=== PATIENT | female | born 1955 | race African-American/Black ===

== ENCOUNTER 2016-06-30 15:36 | Observation (INO) | payer BC ==
[~2016-06-30] VITALS: Ht 170.2 cm; Wt 104.3 kg
[2016-06-30] MEDS ORDERED: AMLO10TA2 PO (16:21)
[2016-06-30] MEDS ORDERED: METO-269 PO (16:22)
[2016-06-30] MEDS ORDERED: VALS1TAB8 PO (16:23)
[2016-06-30] MEDS ORDERED: CHOL500016 PO (16:24)
[2016-06-30] MEDS ORDERED: UBID1CAP23 PO (16:24)
[2016-06-30] MEDS ORDERED: POTA20TA4 PO (16:25)
[2016-06-30] MEDS ORDERED: MULT-650 PO (16:25)
[2016-06-30] MEDS ORDERED: IV NORMAL SALINE 1000ML BAG 1,000 ML IV SCH (16:35)
--- NOTE | 2016-06-30 16:35 | PHYS DOC ---
Past Medical History Past Medical History: Hypertension Past Surgical History: Cholecystectomy, Hysterectomy Additional Past Surgical Histo: hernia Alcohol Use: None Drug Use: None Adult General Chief Complaint Chief Complaint: ABDOMINAL PAIN HPI HPI Patient is a 61 year old female who presents with abdominal pain. Patient reports she has had constant sharp right lower quadrant pain since Wednesday. This is accompanied by nausea for the past 2 weeks. She is also having chills. She was seen by Dr. Marley today, and was sent to the emergency department due to concern for appendicitis. She has not taken anything for symptoms. Review of Systems Review of Systems Constitutional: Chills Eyes: Denies change in visual acuity or eye pain HENT: Denies nasal congestion or sore throat Respiratory: Denies cough or shortness of breath Cardiovascular: Denies chest pain GI: RLQ abdominal pain, nausea. Denies vomiting, bloody stools or diarrhea : Denies dysuria or hematuria Musculoskeletal: Denies back pain or joint pain Integument: Denies rash or skin lesions Neurologic: Denies headache, focal weakness or sensory changes Current Medications Current Medications Current Medications Medications (Trade) Dose Ordered Sig/Prakash Start Time Stop Time Status Last Admin Dose Admin Aspirin (Children'S Aspirin) 324 mg 1X ONCE 06/30/16 20:45 06/30/16 20:46 Famotidine (Pepcid) 20 mg 1X ONCE 06/30/16 18:00 06/30/16 18:09 DC Info (Do NOT chart on this entry -- for MONITORING) 1 each PRN DAILY PRN 06/30/16 17:15 07/02/16 17:14 Iohexol (Omnipaque 300 Mg/ml) 75 ml 1X ONCE 06/30/16 17:15 06/30/16 17:16 DC 06/30/16 17:17 75 ML Lorazepam (Ativan) 1 mg 1X ONCE 06/30/16 18:00 06/30/16 18:09 DC Morphine Sulfate 4 mg 1X ONCE 06/30/16 16:45 06/30/16 16:46 DC 06/30/16 17:01 4 MG Ondansetron HCl (Zofran) 4 mg 1X ONCE 06/30/16 16:45 06/30/16 16:46 DC 06/30/16 17:01 4 MG Potassium Chloride (Klor-Con) 20 meq 1X ONCE 06/30/16 18:00 06/30/16 18:09 DC Sodium Chloride (Iv Sodium Chloride 0.9% 1000ml Bag) 1,000 ml @ 1,000 mls/hr Q1H 06/30/16 16:35 06/30/16 17:34 DC 06/30/16 17:02 1,000 MLS/HR Allergies Allergies Allergies Coded Allergies Type Severity Reaction Last Updated Verified Penicillins Allergy Unknown 06/30/16 Yes codeine Allergy Unknown 06/30/16 Yes hydrocodone Allergy Unknown 06/30/16 Yes tramadol Allergy Unknown 06/30/16 Yes shellfish derived Adverse Reaction Unknown 06/30/16 Yes Physical Exam Physical Exam Constitutional: Well developed, well nourished, no acute distress, non-toxic appearance HENT: Normocephalic, atraumatic, bilateral external ears normal Eyes: EOMI, conjunctiva normal, no discharge Neck: Normal range of motion, no stridor Cardiovascular: Heart rate normal, regular rhythm, no murmur Lungs & Thorax: Bilateral breath sounds clear to auscultation Abdomen: Bowel sounds normal, soft, non-distended, R mid abdomen TTP without guarding Skin: Warm, dry, no erythema, no rash Extremities: No obvious deformity, no edema Neurologic: Alert and oriented X 3, no gross deficits noted Psychologic: Affect normal, judgement normal, mood normal Current Patient Data Vital Signs Vital Signs Date Time Temp Pulse Resp B/P Pulse Ox O2 Delivery O2 Flow Rate FiO2 06/30/16 18:40 86 20 190/86 98 06/30/16 16:00 98.4 Room Air 98.4 Lab Values Laboratory Tests Test 06/30/16 15:45 06/30/16 16:08 06/30/16 19:43 Urine Collection Type Unknown Urine Color Yellow Urine Clarity Clear Urine pH 6.0 Urine Specific [place] >=1.030 Urine Protein Negativemg/dL (NEG-TRACE) Urine Glucose (UA) 500mg/dL (NEG) Urine Ketones (Stick) Negativemg/dL (NEG) Urine Blood Negative (NEG) Urine Nitrite Negative (NEG) Urine Bilirubin Negative (NEG) Urine Urobilinogen Dipstick 0.2mg/dL (0.2 mg/dL) Urine Leukocyte Esterase Trace (NEG) Urine RBC Rare/HPF (0-2) Urine WBC 1-4/HPF (0-4) Urine Squamous Epithelial Cells Many/LPF Urine Bacteria Few/HPF (0-FEW) Urine Mucus Marked/LPF White Blood Count 7.6x10^3/uL (4.0-11.0) Red Blood Count 5.56x10^6/uL (3.50-5.40) H Hemoglobin 12.2g/dL (12.0-15.5) Hematocrit 39.5% (36.0-47.0) Mean Corpuscular Volume 71fL (79-100) L Mean Corpuscular Hemoglobin 22pg (25-35) L Mean Corpuscular Hemoglobin Concent 31g/dL (31-37) Red Cell Distribution Width 15.0% (11.5-14.5) H Platelet Count 168x10^3/uL (140-400) Neutrophils (%) (Auto) 52% (31-73) Lymphocytes (%) (Auto) 39% (24-48) Monocytes (%) (Auto) 7% (0-9) Eosinophils (%) (Auto) 1% (0-3) Basophils (%) (Auto) 1% (0-3) Neutrophils # (Auto) 3.9x10^3uL (1.8-7.7) Lymphocytes # (Auto) 3.0x10^3/uL (1.0-4.8) Monocytes # (Auto) 0.5x10^3/uL (0.0-1.1) Eosinophils # (Auto) 0.1x10^3/uL (0.0-0.7) Basophils # (Auto) 0.1x10^3/uL (0.0-0.2) Platelet Estimate Adequate (ADEQUATE) Polychromasia Slight Hypochromasia Slight Anisocytosis Slight Microcytosis Mod Target Cells Occ Sodium Level 142mmol/L (136-145) Potassium Level 3.3mmol/L (3.5-5.1) L Chloride Level 102mmol/L (98-107) Carbon Dioxide Level 30mmol/L (21-32) Anion Gap 10 (6-14) Blood Urea Nitrogen 17mg/dL (7-20) Creatinine 0.8mg/dL (0.6-1.0) Estimated GFR (Cockcroft-Gault) 87.9 BUN/Creatinine Ratio 21 (6-20) H Glucose Level 249mg/dL (70-99) H Calcium Level 10.1mg/dL (8.5-10.1) Total Bilirubin 0.8mg/dL (0.2-1.0) Aspartate Amino Transferase (AST) 15U/L (15-37) Alanine Aminotransferase (ALT) 25U/L (14-59) Alkaline Phosphatase 93U/L (46-116) Troponin I Quantitative 0.018ng/mL (0.000-0.055) 0.028ng/mL (0.000-0.055) Total Protein 7.8g/dL (6.4-8.2) Albumin 3.8g/dL (3.4-5.0) Albumin/Globulin Ratio 1.0 (1.0-1.7) Lipase 97U/L (73-393) Laboratory Tests 06/30/16 16:08 Laboratory Tests 06/30/16 16:08 EKG EKG EKG (my read): sinus rhythm, rate 83, LAD, intervals wnl, no acute ST/T changes Radiology/Procedures Radiology/Procedures CT A/P: Impression: Unremarkable CT of the abdomen and pelvis. No acute abnormality is detected. CXR: pending Course & Med Decision Making Course & Med Decision Making Pertinent Labs and Imaging studies reviewed. (See chart for details) Patient is 61-year-old female who presents with right lower quadrant pain. Concern for possibility of appendicitis. Will check labs, UA, CT abdomen/pelvis to evaluate. IV fluids, pain medication, nausea medication ordered for relief of symptoms. Labs largely unremarkable. CT results as above. Right after patient got CT scan, she started complaining of indigestion and became agitated. Perhaps due to IV contrast for the morphine. I ordered a dose of Ativan for the patient, which she refused. She says she will not take any more medication here. Although patient remains adamant that this just indigestion and not related to her heart, I have ordered an EKG and troponin. Initial troponin within normal limits. After discussion with patient, she agreed to stay for second troponin which increased to 0.028 (up from 0.018). I am concerned for possibility of ACS with this troponin increase after just a couple hours of symptoms. Dose of aspirin ordered. I discussed this change in troponin with patient (and why it was concerning); she does not wish to stay in the hospital. However, I am not comfortable discharging patient with her symptoms and this increase in troponin. Patient is A&Ox3, and has capacity to make her own medical decisions. I discussed with her and family that if she wanted to leave she would have to sign out AMA, which she does not want to do because of the insurance ramifications. She has therefore agreed to stay the night for serial troponins. Case discussed with Dr. Olson, will admit under observation status for repeat biomarkers. Dragon Disclaimer Dragon Disclaimer This electronic medical record was generated, in whole or in part, using a voice recognition dictation system. Departure Departure Impression: Primary Impression: Abdominal pain Additional Impression: Chest discomfort Disposition: ADMITTED INPATIENT Admitting Physician: Anson Olson Condition: GUARDED Referrals: DANA MARLEY MD (PCP) Problem Qualifiers CHUCK GUILLAUME MD Jun 30, 2016 16:35
[2016-06-30] MEDS ORDERED: ONDANSETRON PF 4 MG/2 ML VIAL. IV ONE (16:45)
[2016-06-30] MEDS ORDERED: MORPHINE SULFATE 4 MG/ML DISP.SYRIN. IV ONE (16:45)
[2016-06-30 16:48] LABS: BASO # 0.1 x10^3/uL (0.0-0.2); BASO % 1 % (0-3); EOS % 1 % (0-3); HEMATOCRIT 39.5 % (36.0-47.0); HEMOGLOBIN 12.2 g/dL (12.0-15.5); LYMPH % 39 % (24-48); MEAN CORPUSCULAR HEMOGLOBIN 22 pg (25-35); MEAN CORPUSCULAR HGB CONC 31 g/dL (31-37); MEAN CORPUSCULAR VOLUME 71 fL (79-100); MONO % 7 % (0-9); NEUT % 52 % (31-73); PLATELET COUNT 168 x10^3/uL (140-400); RED BLOOD COUNT 5.56 x10^6/uL (3.50-5.40); WHITE BLOOD COUNT 7.6 x10^3/uL (4.0-11.0)
[2016-06-30 16:48] LABS: BILIRUBIN,URINE NEGATIVE (NEG); GLUCOSE,URINE 500 mg/dL (NEG); NITRITE,URINE NEGATIVE (NEG); PROTEIN,URINE NEGATIVE (NEG-TRACE); UROBILINOGEN,URINE 0.2 mg/dL (0.2 mg/dL)
[2016-06-30 17:02] LABS: CALCIUM 10.1 mg/dL (8.5-10.1); CREATININE 0.8 mg/dL (0.6-1.0); GFR 87.9; POTASSIUM 3.3 mmol/L (3.5-5.1)
[2016-06-30 17:02] LABS: BACTERIA,URINE FEW /HPF (0-FEW); RBC,URINE RARE /HPF (0-2); SQUAMOUS EPITHELIAL CELL,UR MANY /LPF
[2016-06-30 17:08] LABS: ALBUMIN 3.8 g/dL (3.4-5.0); TOTAL BILIRUBIN 0.8 mg/dL (0.2-1.0); TOTAL PROTEIN 7.8 g/dL (6.4-8.2)
[2016-06-30] MEDS ORDERED: IOHEXOL 300 MG/ML 75 ML VIAL IV ONE (17:15)
[2016-06-30] MEDS ORDERED: CONTRAST GIVEN MC PRN (17:15)
[2016-06-30 17:55] LABS: ANISOCYTOSIS SLIGHT; HYPOCHROMIA SLIGHT; MICROCYTOSIS MOD; PLT ESTIMATE ADEQUATE (ADEQUATE); POLYCHROMASIA SLIGHT; TARGET CELLS OCC
[2016-06-30] MEDS ORDERED: POTASSIUM CHLORIDE 20 MEQ TABLET.ER. PO ONE (18:00)
[2016-06-30] MEDS ORDERED: FAMOTIDINE 20 MG/2 ML VIAL IVP ONE (18:00)
[2016-06-30] MEDS ORDERED: LORAZEPAM 2 MG/ML VIAL IV ONE (18:00)
--- NOTE | 2016-06-30 18:04 | RAD ---
CT abdomen pelvis with IV contrast Indication: Right lower quadrant pain with nausea. Axial imaging through the abdomen and pelvis was performed after the administration of intravenous contrast. No prior CT studies are available for comparison. The lung bases are clear. The liver is unremarkable. Gallbladder is surgically absent. The pancreas and spleen are unremarkable. No adrenal mass is detected. There is no hydronephrosis. The aorta is normal caliber. The small and large bowel loops are normal caliber. The appendix is visualized and unremarkable. There are postop changes to the anterior abdominal wall. No free fluid or fluid collection is seen. No free air is identified. The bladder is decompressed. Impression: Unremarkable CT of the abdomen and pelvis. No acute abnormality is detected. Electronically signed by: Rakesh Torres MD (Jun 30, 2016 18:03:09)
[2016-06-30] MEDS ORDERED: ASPIRIN 81 MG TAB.CHEW PO ONE (20:45)
[2016-06-30] MEDS ORDERED: NITROGLYCERIN SUBLINGUAL 0.4 MG BOTTLE OF 25. SL PRN (21:00)
[2016-06-30] MEDS ORDERED: ONDANSETRON PF 4 MG/2 ML VIAL. IV PRN (21:00)
[2016-06-30] MEDS ORDERED: FENTANYL PF 100 MCG/2 ML VIAL. IV PRN (21:00)
[2016-06-30] MEDS ORDERED: ACETAMINOPHEN 325 MG TABLET. PO PRN (21:00)
--- NOTE | 2016-06-30 21:37 | ACF ---
Admission Forms Criteria ABDOMINAL PAIN Clinical Indications for Admission to Inpatient Care (Place 'X' for any and all applicable criteria): Admission is indicated for ANY ONE of the following(1)(2)(3)(4)(5): [X]I. Inpatient admission required rather than observation care (Also use Abdominal Pain: Observation Care, as appropriate) because of ANY ONE of the following: [ ]a) Severe pain requiring acute inpatient management [X]b) Identification of etiology/finding that requires inpatient care (eg, aortic dissection, free air) [ ]c) Absent bowel sounds with complete ileus(6) [ ]d) Suspected toxic megacolon [ ]e) Severe electrolyte abnormalities requiring inpatient care [ ]f) High fever or infection requiring inpatient admission as indicated by ANY ONE of following(7)(8): [ ] i) Appropriate outpatient or observational care antimicrobial treatment unavailable, not effective, or not feasible [ ] ii) Documented bacteremia [ ] iii) Temperature > 104.9 degrees F (oral) [ ] iv) T >103.1 F (oral) or < 96.8 F(rectal) that does not respond to all emergency treatment measures [ ]g) Signs of intestinal obstruction [B] [ ]h) Hemodynamic instability [ ]i) IV fluid to replace significant ongoing losses (greater than 3 L/m2 per day) (12)(13) [ ]j) Percutaneous or open drainage (eg, abscess, biliary tract ) procedures [ ]k) Parenteral nutrition regimen that must be implemented on inpatient basis [ ]l) Other condition,treatment or monitoring requiring inpatient admission. [ ]II. Peritoneal signs present [ ]III. Surgery needed that cannot be performed on an ambulatory basis. [ ]IV. Evaluation requires patient to not eat or drink for extended period ( eg, more than 24 hours). [ ]V. Contraindications and/or Inappropriate clinical situations for Observational Care in patients with abdominal pain, when ANY ONE of the following is required: [ ]a) Thorough evaluation is required to prevent catastrophic events due to delays in diagnosing (e.g.Mesenteric ischemia) 1,3 [ ]b) Patient with severe pathology or with chronic symptoms unlikely to improve in the ED stay (3) [ ]. General contraindications and/or Inappropriate clinical situations for Observational Care in patients with abdominal pain, when ANY ONE of the following is required: [ ]a) Prediction of prolongation of LOS based on ANY ONE of the following may be considered as a contraindication for observational care 2, 3, 4, 5, 6, 7, 8, 9, 10, 11 [ ]i) Age > 65 yrs. [ ]ii) Patient arriving by ambulance [ ]iii) Patient with high acuity [ ]iv) Patient requiring vital sign monitoring [ ]v) Patient on IV medication [ ]b) Systolic blood pressures 180mmHg 3,12 [ ]c) Patient with altered mental status including delirium and other alteration of consciousness, (3) [ ]d) Patient whose discharge disposition will be to a alf home or rehabilitation home should not be managed in Emergency Department Observation Unit. CMS rule requires 3 days hospital stay before such placement.3,13 [ ]e) Patient with failure to thrive due to broad array of etiologies 3,16,17 [ ]f) Inability to ambulate 3,14 Extended stay beyond goal length of stay may be needed for(2)(3): [ ]a) Persistent abdominal pain with suspected intra-abdominal process [ ]b) Diagnosed condition requiring continued stay (e.g., pancreatitis, complicated diverticulitis) [ ]c) Surgery (e.g., colectomy) The original [facility] content created by [employer] has been revised. The portions of the content which have been revised are identified through the use of italic text or in bold, and [facility] has neither reviewed nor approved the modified material.All other unmodified content is copyright [employer] [facility]. Please see references footnoted in the original [facility] edition 2016 Admission Criteria Met?: Yes KIMBERLY BARBOZA Jun 30, 2016 21:37
[2016-06-30 23:00] VITALS: BP 183/86
[2016-06-30 23:56] VITALS: BP 183/86
[2016-07-01 03:24] VITALS: BP 157/84
--- NOTE | 2016-07-01 06:11 | EKG ---
[facility] [address] [place] [address] Test Date: 2016-06-30 Test Time: 18:12:12 Pat Name: LOIDA NGUYEN Department: Room: 270 1 Gender: F Word Processor Technician: : [id number] Requested By: GORDON BOONE Order Number: [id number] Reading MD: Measurements Intervals [place] Rate: 83 P: 96 IN: 148 QRS: 3 QRSD: 86 T: 25 QT: 374 QTc: 445 Interpretive Statements SINUS RHYTHM LEFT ATRIAL ABNORMALITY RI6.01 Unconfirmed report No previous ECG available for comparison
[2016-07-01 07:00] VITALS: BP 157/84
--- NOTE | 2016-07-01 07:23 | RAD ---
Indication chest pain. A single view of the chest was obtained. Comparison is made to an examination 10/26/2007. Heart size is slightly enlarged but unchanged. There is no congestive heart failure. A focal process in the chest is not seen. The lungs are clear. A significant change compared to the previous exam is not seen. IMPRESSION: No acute or focal process. No significant change
[2016-07-01] MEDS ORDERED: ONDANSETRON PF 4 MG/2 ML VIAL. IV PRN (09:08)
--- NOTE | 2016-07-01 09:34 | PDOC ---
Provider Note Provider Note 23 hr note done. JOb # [id number] DENNIS SCHILLING MD Jul 01, 2016 09:34
[2016-07-01 10:00] VITALS: BP 157/84
[2016-07-01] MEDS ORDERED: METOPROLOL SUCC 24HR ER 50 MG TAB.ER.24H. PO SCH (10:00)
[2016-07-01] MEDS ORDERED: AMLODIPINE BESYLATE 10 MG TABLET PO SCH (10:00)
[2016-07-01] MEDS ORDERED: UBIDECARENONE 50 MG CAPSULE. PO SCH (10:00)
[2016-07-01] MEDS ORDERED: MULTIVITAMIN with MINERAL TABLET. PO SCH (10:00)
[2016-07-01] MEDS ORDERED: POTASSIUM CHLORIDE 20 MEQ TABLET.ER. PO SCH (10:00)
--- NOTE | 2016-07-01 11:08 | SSS ---
ADMIT DATE: 06/30/2016 CHIEF COMPLAINT: Abdominal pain. HISTORY OF PRESENT ILLNESS: The patient is a pleasant 61-year-old -Indian female with past medical history of only hypertension, on blood pressure medications at home. PCP, Dr. Michel, follows with of Gastroenterology p.r.n., has history of mesh from ventral hernia, history of hysterectomy and cholecystectomy, coming in because of acute to subacute onset of epigastric pain, more so on the right upper quadrant area, started on Wednesday, which was around 3 to 4 days prior to admission. Associated with nausea for about 2 weeks now. No fever, no change in stool. The patient went to the Emergency Room because of the severe pain as advised by her PCP, thought of initial appendicitis, but CAT scan was unremarkable. Urinalysis also was unremarkable. The patient felt sick after the IV contrast, some morphine, and other medications given at the ER, so she really did not want to be admitted, but on first set of cardiac enzymes, it was elevated, which also further increased on the second set, but looking at these numbers, they are actually within normal range. The patient was admitted despite her being hesitant to be admitted for chest pain, rule out, but again troponins have been in the reference range, and EKG is otherwise unremarkable. The patient still has some abdominal pain, but she refuses to have further evaluation and medications here. On my examination, she does have significant pain in the epigastric and right upper quadrant area even in the left areas, but if she is not palpated, she is fine. She refuses to take any medications. She says she just wants to go home and follow up with her Gastroenterology and General Surgery. Her hernia mesh was placed by Dr. Gallardo here. I did offer that idea of staying here with Dr. Gallardo to see her today and make sure there is nothing surgical or emergent that needs to be addressed or considered with this patient, but still she refused. PAST MEDICAL HISTORY: Hypertension. PAST SURGICAL HISTORY: Hysterectomy and cholecystectomy. Mesh hernia repair. ALLERGIES: PENICILLIN, CODEINE, HYDROCODONE, SHELLFISH-DERIVED SULFAMETHOXAZOLE, TRAMADOL, AND TRIMETHOPRIM. SOCIAL HISTORY: No smoking, no alcohol, no street drugs. REVIEW OF SYSTEMS: All 14 systems reviewed. Denies per HPI. PHYSICAL EXAMINATION: GENERAL: Awake and alert x 3, not in acute respiratory distress. HEENT: Unremarkable. LUNGS: Clear to auscultation bilaterally. CARDIOVASCULAR: Normal rate and rhythm. No murmurs, rubs, or gallops. ABDOMEN: Soft, tender on the epigastric right upper quadrant area. No rebound, guarding. Normoactive bowel sounds. EXTREMITIES: Negative edema. Pulses were full and equal. No pallor or cyanosis of nailbeds. NEUROLOGIC: Within normal limits. PSYCHIATRIC: Within normal limits. GENITALIA: Appropriate for age. ASSESSMENT AND PLAN: Epigastric pain, right upper quadrant pain. Differentials include early appendicitis, peptic ulcer disease, or gastritis. Technically would need Gastroenterology and consult maybe an EGD or a trial of GI cocktail, PPI, etc., but the patient just refuses to have all these done here at the [facility]. She will follow up with her primary care physician as outpatient. I did emphasize the urgency of seeing her primary care physician, and she understands. Son is at bedside. 1. Hypertension, controlled. 2. Obesity. 3. Mild PCI. 4. Hypokalemia. ____ at the Emergency Room. Plan of care as discussed above. HOSPITAL COURSE: The patient stayed overnight despite her not wanting to be admitted for chest pain, rule out, but her troponins have been in reference range. EKG was unremarkable. I am more concerned of the epigastric and right upper quadrant pain and if this is PUD, gastritis, etc., but there is no rebound or guarding, so I do not think that there is any perforation. CAT scan of the abdomen and pelvis are unremarkable. I advised, she will follow up with PCP, Gastroenterology, and General Surgery as soon as she gets out of here. Discussed with RNThang. DENNIS SCHILLING MD DR: /nts JOB#: [id number] / [id number]
[2016-07-08] MEDS ORDERED: CHOLECALCIFEROL (VITAMIN D3) 5,000 UNIT CAPSULE PO SCH (09:00)
== END 2016-07-01 11:00 | disposition home or self-care (01) ==
LOC: ER 15:36 → CVICU 20:44
PROVIDERS: ADMIT Internal Medicine; ATTEND Internal Medicine
DX: R10.31 Right lower quadrant pain (principal); R10.13 Epigastric pain; I10 Essential (primary) hypertension; E87.6 Hypokalemia; E66.9 Obesity, unspecified
CPT/HCPCS: 36415; 71010; 74177; 80053; 81001; 83690; 84484; 85007; 85027; 87086; 93005; 96361; 96374; 96375; 99285; G0378; J2270; J2405; J7030; Q9967; G0379

== ENCOUNTER → 2016-08-19 | Outpatient (CLI) | payer BC ==
[~2016-08-19] MED LIST: AMLO10TA2 PO; BARIUM SULFATE 105% 1,900 ML SUSP PO ONE; CHOL500016 PO; METO-269 PO; MULT-650 PO; POTA20TA4 PO; UBID1CAP23 PO; VALS1TAB8 PO
--- NOTE | 2016-08-19 09:23 | RAD ---
Deep Doppler hepatic ultrasound, 08/19/2016: History: Esophageal varices Duplex evaluation of the hepatic vasculature was performed including grayscale, color-flow and spectral Doppler analysis. The portal veins are patent and demonstrate a normal direction of flow. The hepatic veins are also patent. The hepatic artery is unremarkable. Incidental note is made of increased hepatic echogenicity in a heterogeneous pattern suggesting patchy fatty infiltration. IMPRESSION: 1. Unremarkable hepatic vasculature. 2. Heterogeneously increased hepatic echogenicity suggesting patchy fatty infiltration. CT scanning may be useful for further evaluation, if clinically indicated.
--- NOTE | 2016-08-19 11:39 | RAD ---
Barium enema, 08/19/2016: History: Incomplete colonoscopy The preliminary abdominal image demonstrates a nonspecific gas pattern. Coil like radiopacities related to a mesh from a prior hernia repair are projected over the abdomen and pelvis. Barium was introduced into the colon in a retrograde manner. 2.6 minutes of fluoroscopy time was utilized. 11 fluoroscopic spot images were recorded. No constricting colonic lesion is seen. There are filling defects in the barium colon, most prominent in the ascending colon and cecum, compatible with fecal debris. No colonic mass is identified. There was reflux of barium into the terminal ileum which is unremarkable. IMPRESSION: Negative barium enema.
== END | disposition home or self-care (01) ==
LOC: US 12:05
PROVIDERS: ATTEND Internal Medicine Gastroenterology
DX: I85.00 Esophageal varices without bleeding (principal); K76.89 Other specified diseases of liver; K21.9 Gastro-esophageal reflux disease without esophagitis; D36.9 Benign neoplasm, unspecified site
CPT/HCPCS: 74270; 93975

== ENCOUNTER 2016-09-18 07:02 | Outpatient (CLI) | payer BC ==
[2016-09-18] VITALS (8 sets, daily range): BP systolic 150–176; BP diastolic 79–95
[~2016-09-18] VITALS: Ht 170.2 cm; Wt 91.6 kg
[~2016-09-18 07:02] MED LIST changes: -BARIUM SULFATE 105% 1,900 ML SUSP PO ONE
[2016-09-18 07:33] LABS: BASO # 0.1 x10^3/uL (0.0-0.2); BASO % 1 % (0-3); EOS % 4 % (0-3); HEMATOCRIT 37.7 % (36.0-47.0); HEMOGLOBIN 11.7 g/dL (12.0-15.5); LYMPH # 2.9 x10^3/uL (1.0-4.8); LYMPH % 34 % (24-48); MEAN CORPUSCULAR HEMOGLOBIN 22 pg (25-35); MEAN CORPUSCULAR HGB CONC 31 g/dL (31-37); MEAN CORPUSCULAR VOLUME 71 fL (79-100); MONO % 9 % (0-9); NEUT % 52 % (31-73); PLATELET COUNT 193 x10^3/uL (140-400); RED CELL DISTRIBUTION WIDTH 15.7 % (11.5-14.5); WHITE BLOOD COUNT 8.4 x10^3/uL (4.0-11.0)
[2016-09-18 07:39] LABS: PROTHROMBIN TIME PATIENT 12.1 SEC (11.7-14.0)
[2016-09-18 07:42] LABS: CALCIUM 9.8 mg/dL (8.5-10.1); CREATININE 0.7 mg/dL (0.6-1.0); GFR 102.6; POTASSIUM 3.7 mmol/L (3.5-5.1)
[2016-09-18] MEDS ORDERED: IOHEXOL 300 MG/ML 100ML VIAL. ONE (07:48)
[2016-09-18] MEDS ORDERED: LIDOCAINE 1% / SOD BICARB 8.4% 20 ML VIAL. IJ ONE ×2 (07:49→09:00)
[2016-09-18] MEDS ORDERED: VALS1TAB8 PO (07:52)
[2016-09-18] MEDS ORDERED: fentaNYL PF VIAL 100 MCG/2 ML VIAL ONE ×2 (08:32→08:47)
[2016-09-18] MEDS ORDERED: MIDAZOLAM HCL/PF 2 MG/2 ML VIAL. ONE ×2 (08:32→08:47)
[2016-09-18] MEDS ORDERED: fentaNYL PF VIAL 100 MCG/2 ML VIAL IV ONE (09:00)
[2016-09-18] MEDS ORDERED: MIDAZOLAM HCL/PF 2 MG/2 ML VIAL. IV ONE (09:00)
[2016-09-18] MEDS ORDERED: IOHEXOL 300 MG/ML 100ML VIAL. IART ONE (09:00)
--- NOTE | 2016-09-18 09:36 | PDOC ---
MODERATE SEDATION ASSESSMENT RISKS/ALTERNATIVES Risks/Alternatives Risks and alternatives of this type of sedation and procedure discussed with: RISK/ALTERNATIVES: Patient H & P ON CHART H & P H & P on chart and reviewed for co-morbid conditions and appropriate labs. H&P ON CHART: Yes STATUS PREG STATUS ASSESSED: N/A MEDS/ALLERGIES REVIEWED Meds/Allergies Reviewed Medications and Allergies including time and route of recently administered narcotics and sedatives. MEDS/ALLERGIES REVIEWED: Yes ASA RATING ASA RATING: I AIRWAY ASSESSMENT Airway Assessment Airway patency, oral function limitations, presence of caps, crowns, dentures, partials, and ability to extend neck assessed. AIRWAY ASSESSMENT: Yes MALLAMPATI SCORE MALLAMPATI SCORE: II PRE-SEDATION ASSESSMENT PRE-SEDATION ASSESSMENT: Yes ELIU ANDREA MD September 18, 2016 09:36
--- NOTE | 2016-09-18 09:44 | PDOC1 ---
History and Physical Date of Procedure Date of Admission 09/18/16 Procedure Procedure TJLBx with hepatic venogram and hemodynamics Indication Indication 61 YO female with EVs at recent EGD, raising ? of cirrhosis with portal HTN. Past Medical History Past Medical History See Nursing Pre procedure PMH Past Surgical History Past Surgical History See Nursing Pre procedure PSH Current Medications Current Medications Current Medications Iohexol (Omnipaque 300 Mg/ml) 100 ml STK-MED ONCE .ROUTE ; Start 09/18/16 at 07: 48; Stop 09/18/16 at 07:49; Status DC Lidocaine/Sodium Bicarbonate (Buffered Lidocaine 1%) 20 ml STK-MED ONCE IJ ; Start 09/18/16 at 07:49; Stop 09/18/16 at 07:50; Status DC Heparin Sodium/ Sodium Chloride 500 ml @ As Directed STK-MED ONCE .ROUTE ; Start 09/18/16 at 07:49; Stop 09/18/16 at 07:50; Status DC Midazolam HCl (Versed) 2 mg STK-MED ONCE .ROUTE ; Start 09/18/16 at 08:32; Stop 09/18/16 at 08:33; Status DC Fentanyl Citrate (Fentanyl 2ml Vial) 100 mcg STK-MED ONCE .ROUTE ; Start at 08:32; Stop 09/18/16 at 08:33; Status DC Midazolam HCl (Versed) 2 mg STK-MED ONCE .ROUTE ; Start 09/18/16 at 08:47; Stop 09/18/16 at 08:48; Status DC Fentanyl Citrate (Fentanyl 2ml Vial) 100 mcg STK-MED ONCE .ROUTE ; Start at 08:47; Stop 09/18/16 at 08:48; Status DC Heparin Sodium/ Sodium Chloride 1,000 unit 1X ONCE IART Last administered on 09:17; Start 09/18/16 at 09:00; Stop 09/18/16 at 09:05; Status DC Lidocaine/Sodium Bicarbonate (Buffered Lidocaine 1%) 20 ml 1X ONCE IJ Last administered on 09/18/16 09:17; Start 09/18/16 at 09:00; Stop 09/18/16 at 09:05 ; Status DC Midazolam HCl (Versed) 4 mg 1X ONCE IV Last administered on 09/18/16 09:18; Start 09/18/16 at 09:00; Stop 09/18/16 at 09:05; Status DC Fentanyl Citrate (Fentanyl 2ml Vial) 200 mcg 1X ONCE IV Last administered on 09:18; Start 09/18/16 at 09:00; Stop 09/18/16 at 09:05; Status DC Iohexol (Omnipaque 300 Mg/ml) 100 ml 1X ONCE IART Last administered on 09:17; Start 09/18/16 at 09:00; Stop 09/18/16 at 09:05; Status DC Active Scripts Active Reported Diovan Hct 160-12.5 Mg Tab (Valsartan/Hydrochlorothiazide) 1 Each Tablet 1 Tab PO BID Klor-Con M20 (Potassium Chloride) 20 Meq Tab.er.prt 1 Tab PO BID Centrum Silver Women Tablet (Multivits-Min/Iron/FA/Lutein) 1 Each Tablet 1 Each PO DAILY Co Q-10 100 Mg Softgel (Ubidecarenone/Vit E Acetate) 1 Each Capsule 1 Each PO DAILY Vitamin D3 (Cholecalciferol (Vitamin D3)) 5,000 Unit Tablet 5,000 Unit PO WEEKLY Toprol Xl (Metoprolol Succinate) 50 Mg Tab.er.24h 75 Mg PO BID Amlodipine Besylate 10 Mg Tablet 10 Mg PO DAILY Allergies Allergies: Coded Allergies: Penicillins (Verified Allergy, Unknown, 06/30/16) codeine (Verified Allergy, Unknown, 06/30/16) hydrocodone (Verified Allergy, Unknown, 06/30/16) sulfamethoxazole (Verified Allergy, Unknown, Itching, 07/01/16) per patient tramadol (Verified Allergy, Unknown, 06/30/16) trimethoprim (Verified Allergy, Unknown, Itching, 07/01/16) per patient shellfish derived (Verified Adverse Reaction, Unknown, 06/30/16) Pt states she only has reaction to seafood that is not fresh. Pt states she is able to take IV contrast Physical Exam Vital Signs Vital Signs Date Time Temp Pulse Resp B/P (MAP) Pulse Ox O2 Delivery O2 Flow Rate FiO2 09/18/16 09:18 14 97 Room Air 09/18/16 09:15 66 09/18/16 07:49 98.1 176/93 (120) 98.1 Lungs: Clear to auscultation Heart: Regular rate Psych/Mental Status: Mental status NL Diagnostic Data/Imaging Images [facility] CT abdomen from 06/30/16 reviewed--no imaging evidence of cirrhosis or portal HTN. [facility] hepatic duplex Doppler U/S reviewed--Hepatic and Portal veins normal---? of fatty liver. Assessment Assessment 61 YO female with no known h/o liver disease. EVs identified at EDG, raising ? of cirrhosis with portal HTN. Problems: Plan Plan TJLBX with hepatic venogram/hemodynamics ELIU ANDREA MD September 18, 2016 09:44
--- NOTE | 2016-09-18 09:48 | PDOC ---
Exam Manager Protein Manager Protein Mariely Quality Internship Quality Internship Bernardo Marr Pre-Procedure Diagnosis Pre-Procedure Diagnosis 61 YO female with EVs seen at EGD. ? cirrhosis with portal HTN. Post-Procedure Diagnosis Post-Procedure Diagnosis Normal rt hepatic venogram. PSG 5mm Hg mean. Procedure Performed Procedure Performed Hepatic venogram with hemodynamics. TJLBx Type of Anesthesia Type of Anesthesia Local + Mod sedation Estimated Blood Loss EBL: Minimal Specimens Specimans 3 19G core bx rt lobe liver to path in formalin Condition of Patient Condition of Patient Stable. No apparent complication. Disposition Disposition Home from [facility] post recovery, if no problems. F/u with Dr Mo. Full report to follow. ELIU ANDREA MD September 18, 2016 09:48
[2016-09-18] MEDS ORDERED: METF500T4 PO (10:46)
--- NOTE | 2016-09-18 16:20 | RAD ---
Hepatic venogram with hemodynamics Transjugular liver biopsy Indication: 61-year-old female with esophageal varices identified at EGD, raising the question of cirrhosis with portal hypertension. Transjugular liver biopsy with hepatic hemodynamics has been requested by GI. Fluoroscopy time: 8.6 minutes Kerma-area Product: 47 Gycm2 Contrast material: 50 cc Omnipaque 300 Anesthesia: 42 minutes moderate sedation was provided utilizing a total of 3 mg Versed and 150 mcg fentanyl, IV. The patient was appropriately monitored by a qualified independent observer throughout the time of moderate sedation. Consent: The procedure was explained in its entirety to the patient and/or the patient's designated student services representative by a member of the treatment team. This included a discussion of risks and benefits and commonly accepted alternatives to the procedure, as well as expected consequences of no treatment at all. Discussion of risks included, but was not limited to, those that are most frequent and those that are rare, but possibly severe or life-threatening, as well as the possibility of unforeseen complications. Sterility: All elements of maximal sterile barrier technique were utilized, including cap, mask, sterile gown, sterile gloves, large sterile sheet, appropriate hand hygiene, and 2% chlorhexidine for cutaneous antisepsis. Procedure: Informed consent was obtained from the patient. She was placed supine on the angiography table. Preliminary ultrasound examination over right neck confirmed wide patency of right internal jugular vein, which was documented with a hard copy ultrasound image. Right neck was then prepped and draped in the usual sterile fashion, utilizing all elements of maximal sterile barrier technique, as described above. Moderate sedation was provided with IV Versed and fentanyl. Using aseptic technique, local anesthesia, and direct ultrasound guidance, a small micropuncture sheath was successfully introduced into right internal jugular vein. The micropuncture sheath was then removed over a guidewire. The percutaneous tract was dilated and a 10 Montenegrin 40 cm long right IJ sheath was successfully introduced, and was positioned with its tip at the level of mid right atrium utilizing fluoroscopic guidance. Right hepatic venogram with hemodynamics: A 5 Montenegrin MP catheter was inserted through the 10 Montenegrin right IJ sheath and was utilized to successfully cannulate right hepatic vein, and was advanced into peripheral aspect of right hepatic vein over a Glidewire. Omnipaque 300 was injected and hepatic venogram digital angiographic images were obtained. Those images revealed unremarkable appearance of secondary and tertiary hepatic vein branches. Right hepatic vein is widely patent, without web or stricture. The MP catheter was then exchanged over a Avuba guidewire for a 5 mm x 20 mm Cordis extreme [employer]IST balloon, which was advanced into peripheral aspect of right hepatic vein. The COMPUT[employer]PERATIONS [employer]IST balloon was then inflated to a 6 yg, and wedged hepatic vein pressure was measured at 15 mmHg mean. The COM[employer]PER[employer]IST balloon was then deflated and was withdrawn into central right hepatic vein. Nonwedged hepatic vein pressure was then measured at 10 mmHg mean. The COM[employer]IST balloon was then removed over the Terumo advantage guidewire. Right atrial pressure was measured through the 10 Montenegrin sheath at 10 mmHg mean. Transjugular liver biopsy: The 10 Montenegrin 40 cm right IJ sheath was then advanced over the Amplatz wire into mid right hepatic vein. A Atmosferiq transjugular liver biopsy set was then introduced through the 10 Montenegrin sheath. A total of 3 19-gauge core biopsy samples were then obtained from posterior segment right lobe of liver. Biopsy material was submitted in formalin to pathology. The transjugular liver biopsy set was then removed through the 10 Montenegrin sheath. The 10 Montenegrin right IJ sheath was then removed and hemostasis was achieved utilizing manual pressure. Patient tolerated the procedures well without apparent complication. Impression: 1. Essentially unremarkable right hepatic venogram. 2. Wedged hepatic vein pressure measures 15 mmHg mean, non-wedged hepatic vein pressure measures 10 mmHg mean, and right atrial pressure measures 10 mmHg mean, for a portosystemic gradient of 5 mmHg mean. 3. Successful, uneventful transjugular liver biopsy, as described.
--- NOTE | 2016-09-22 15:34 | PATHOLOGY ---
PATHOLOGY REPORT * * * * * * * * FINAL DIAGNOSIS: Liver, needle core biopsy: - Fatty liver disease, please see comment. COMMENT: The liver architecture is well-preserved. There is 20% macrovesicular type of steatosis. Portal tracts are identified and are readily available for evaluation. There is no portal tract inflammation or expansion. No Mary hyaline bodies or Mary-Denk bodies identified. There are no granulomas, plasma cells or lymphoid aggregates. Special stains performed at [facility] on block A1 show the following results: Reticulin shows an intact framework. Iron is 0/4 Trichrome does not show any definite fibrosis or pericellular fibrosis. A PAS does not show excessive hepatic glycogenation. PAS-D does not show any hyaline globules. The NAFLD scoring system is as follows: Steatosis: 1 Lobular inflammation: 0 Balloon hepatocytes: 0 SILVANA score is 1/8. Stage: Fibrosis: Stage 0 REPORT ELECTRONICALLY SIGNED BY: Ceci Benjamin M.D. DATE/TIME: 09/22/2016 15:29 * * * * * * * * GROSS PATHOLOGY: Received in formalin labeled "Anuja Strickland, liver biopsy," are three distinct needle cores of orange-gauthier soft tissue ranging from 1.7 to 1.9 cm in length, which are submitted entirely in cassette A1. (CAA; 09/19/2016) INITIAL CPT CODE(S): A; 08221, 08621, 58854, 60164, 48238, 26117 Professional services performed by [facility] at [facility], [address] [place] [address]. Technical services performed by [facility] at [address] [place] [address], [address], [place] [address]. SPECIMEN(S) RECEIVED: A.Liver, needle biopsy CLINICAL HISTORY: No known history of liver disease, E.V. at EGD - ? cirrhosis PATIENT: MAG PATRICKMARCELA Montoya /AGE: 9 1955 (Age: 61) PATIENT #: [id number] ALT CASE #: SPECIMEN COLLECTION DATE: 09/18/2016 SPECIMEN RECEIVED DATE: 09/18/2016 [facility] - [address] [place] [address] - PHONE: [phone] * * * END OF REPORT * * *
== END 2016-09-18 11:25 | disposition home or self-care (01) ==
LOC: INTRAD 07:02
PROVIDERS: ATTEND Internal Medicine Gastroenterology
DX: K74.69 Other cirrhosis of liver (principal); I10 Essential (primary) hypertension; E66.9 Obesity, unspecified; Z90.710 Acquired absence of both cervix and uterus; Z90.49 Acquired absence of other specified parts of digestive tract; Z82.49 Family history of ischemic heart disease and other diseases of the circulatory system
CPT/HCPCS: 36011; 36415; 36596; 37200; 37248; 75889; 75970; 76937; 80048; 85027; 85610; C1758; C1769; C1887; C1892; C1894; J2250; J3010; Q9967